=== PATIENT | female | born 1970 | race Hispanic/Latino ===

== ENCOUNTER 2019-08-20 02:39 | Emergency (ER) | payer BC ==
[~2019-08-20] VITALS: Ht 160 cm; Wt 80.3 kg
[2019-08-20] MEDS ORDERED: SODIUM CHLORIDE 0.9% 500ML 500 ML IV STA (03:06)
[2019-08-20] MEDS ORDERED: HYDROCODONE/APAP 5MG-325MG TAB PO ONE (03:15)
[2019-08-20] MEDS ORDERED: KETOROLAC TROMETHAMINE 30 MG/ML VIAL IV ONE (03:15)
[2019-08-20] MEDS ORDERED: DEXAMETHASONE SOD PHOS 10 MG/1 ML VIAL IV ONE (03:15)
[2019-08-20] MEDS ORDERED: ONDANSETRON HCL INJ 2MG/ML 2ML 2 MG/ML VIAL IV ONE (03:15)
[2019-08-20] MEDS ORDERED: DEXAMETHASONE SOD PHOS 10 MG/1 ML VIAL ONE (03:47)
[2019-08-20] MEDS ORDERED: ONDANSETRON HCL INJ 2MG/ML 2ML 2 MG/ML VIAL ONE (03:47)
[2019-08-20] MEDS ORDERED: KETOROLAC TROMETHAMINE 30 MG/ML VIAL ONE (03:47)
[2019-08-20] MEDS ORDERED: HYDROCODONE/APAP 5MG-325MG TAB ONE (03:48)
[2019-08-20] MEDS ORDERED: SODIUM CHLORIDE 0.9% 500ML 500 ML ONE (03:48)
--- NOTE | 2019-08-20 03:54 | Diagnostic Imaging Report ---
EXAMINATION: CXR 2 VIEW - HOPD INDICATION: Chest pain, right side radiating to left side, history of scoliosis ^cp ^[id number] ^[id number] COMPARISON: None FINDINGS: PA and lateral views TUBES and LINES: None. LUNGS: Lungs are well inflated. There is no evidence of pneumonia or pulmonary edema. PLEURA: No pleural effusion or pneumothorax. HEART AND MEDIASTINUM: The cardiomediastinal silhouette is unremarkable.. BONES AND SOFT TISSUES: Dextroscoliosis of the lower thoracic spine. No compression deformities. No focal osseous lesions. Soft tissues are unremarkable. UPPER ABDOMEN: Unremarkable. IMPRESSION: No acute thoracic abnormality. Signed by: Dr. Callum Collado MD on 08/20/2019 3:52 AM
--- NOTE | 2019-08-20 04:30 | NUR ---
DC'D SL WITHOUT DIFF. PT TOLERATED WELL. NO BLEEDING/REDNESS/SWELLING TO SITE. CATH. INTACT.
[2019-08-20 04:36] VITALS: BP 135/76
== END 2019-08-20 04:35 | disposition home or self-care (01) ==
LOC: FSED 02:39
DX: M94.0 Chondrocostal junction syndrome [Tietze] (principal); R06.00 Dyspnea, unspecified; R00.0 Tachycardia, unspecified; R94.31 Abnormal electrocardiogram [ECG] [EKG]
CPT/HCPCS: 71046; 80053; 82553; 84484; 85025; 85379; 93005; 96374; 96375; 96376; 99284; J1100; J1885; J2405; J7040